=== PATIENT | female | born 1980 | race Caucasian/White ===

== ENCOUNTER 2022-02-22 15:52 | Inpatient (IN) | payer MEDICARE, MEDICAID ==
[~2022-02-22] VITALS: Ht 160 cm; Wt 50.0 kg
[2022-02-22] MEDS ORDERED: LOPERAMIDE HCL 2 MG CAPSULE PO PRN ×2 (21:45)
[2022-02-22] MEDS ORDERED: GuaiFENesin/D-METHORPHAN [SUGAR-FREE] 200-20MG/10 ML SYRUP UDCUP PO PRN (21:45)
[2022-02-22] MEDS ORDERED: GABAPENTIN 400 MG CAPSULE PO ONE (21:45)
[2022-02-22] MEDS ORDERED: ZOLPIDEM TARTRATE 10 MG TABLET PO PRN (21:45)
[2022-02-22] MEDS ORDERED: DIAZEPAM 10 MG TABLET PO PRN (21:45)
[2022-02-22] MEDS ORDERED: ACETAMINOPHEN 325 MG TABLET PO PRN (21:45)
[2022-02-22] MEDS ORDERED: MAG HYDROX/AL HYDROX/SIMETH ES 30 ML SUSPENSION UDCUP PO PRN (21:45)
[2022-02-22] MEDS ORDERED: CYANOCOBALAMIN 1,000 MCG/ML VIAL IM ONE (21:45)
[2022-02-22] MEDS ORDERED: HydrOXYzine PAMOATE 50 MG CAPSULE PO PRN (21:45)
[2022-02-22] MEDS ORDERED: DIVALPROEX SODIUM 500 MG ER TABLET PO ONE (21:45)
[2022-02-22] MEDS ORDERED: PROMETHAZINE HCL 25 MG TABLET PO PRN (21:45)
[2022-02-22] MEDS ORDERED: OLANZapine 5 MG RAPDIS TABLET PO PRN (21:45)
[2022-02-22 22:24] VITALS: BP 135/90
[2022-02-22 23:14] VITALS: BP 120/78
[2022-02-22] MEDS ORDERED: PNEUMOCOCCAL VACCINE POLYVALENT 0.5 ML VIAL [PPSV23] IM. ONE (23:45)
[2022-02-22] MEDS ORDERED: INFLUENZA VIRUS VACCINE QVS 2022-23 (6MO+)/PF 60 MCG/0.5 ML SYRINGE IM. ONE (23:45)
[2022-02-23] VITALS (9 sets, daily range): BP systolic 99–122; BP diastolic 66–80
[2022-02-23] MEDS ORDERED: DIAZEPAM 10 MG TABLET PO PRN (07:00)
[2022-02-23 07:07] LABS: BASOPHILS % (AUTO) 0.6 % (0.0-2.0); EOSINOPHILS % (AUTO) 2.3 % (1.0-6.0); HEMATOCRIT 33.5 % (36-46); HEMOGLOBIN 11.8 g/dL (12.0-16.0); LYMPHOCYTES # (AUTO) 2.2 K/uL (1.0-4.8); LYMPHOCYTES % (AUTO) 30.8 % (22.0-44.0); MEAN CORPUSCULAR HEMOGLOBIN 35.5 pg (26.0-34.0); MEAN CORPUSCULAR HGB CONC 35.1 G/dL (31.0-37.0); MEAN CORPUSCULAR VOLUME 101 fL (80-100); MONOCYTES # (AUTO) 0.7 K/uL (0.1-1.0); MONOCYTES % (AUTO) 9.6 % (2.0-9.0); NEUTROPHILS # (AUTO) 4.1 K/uL (1.8-7.7); NEUTROPHILS % (AUTO) 56.7 % (40.0-70.0); PLATELET COUNT (AUTO) 159 K/uL (150-450); RED BLOOD CELL COUNT(AUTO) 3.32 MIL/uL (4.00-5.20); RED CELL DISTRIBUTION WIDTH 13.5 % (11.5-14.5)
[2022-02-23 07:27] LABS: HEMOGLOBIN A1C 5.1 % (3.8-5.6)
[2022-02-23 07:29] LABS: ALANINE AMINOTRANSFERASE 21 U/L (12-78); ALBUMIN 3.7 g/dL (3.4-5.0); ALKALINE PHOSPHATASE 66 U/L (46-116); ANION GAP 8 mmol/L (8-16); ASPARTATE AMINOTRANSFERASE 19 U/L (15-37); BILIRUBIN,TOTAL 0.3 mg/dL (0.1-1.0); CARBON DIOXIDE 28 mmol/L (22-29); CHLORIDE 101 mmol/L (98-107); CHOL/HDL RATIO 2.6 (3.9-5.7); CHOLESTEROL 186 mg/dL (131-200); CREATININE 0.67 mg/dL (0.60-1.30); FREE T4 (FREE THYROXINE) 0.82 ng/dL (0.76-1.46); GLUCOSE,RANDOM 131 mg/dL (70-110); HDL CHOLESTEROL 71 mg/dL (40-60); LDL CHOL (CALC.) 95 mg/dL (0-130); POTASSIUM 3.2 mmol/L (3.5-5.1); SODIUM SERUM 137 mmol/L (136-145); THYROID STIMULATING HORMONE 5.99 uIU/mL (0.36-3.74); TOTAL PROTEIN, SERUM 7.1 g/dL (6.4-8.2); TRIGLYCERIDES 101 mg/dL (15-150); UREA NITROGEN, BLOOD 9 mg/dL (7-18)
[2022-02-23 07:30] LABS: GLOMERULAR FILTR. RATE CALC > 60 mL/min (>60)
[2022-02-23 08:13] LABS: AMPHET/METH SCREEN,URINE NEGATIVE (NEGATIVE); BARBITURATE SCREEN, URINE NEGATIVE (NEGATIVE); BENZODIAZEPINES SCREEN,URINE NEGATIVE (NEGATIVE); CANNABINOID SCREEN,URINE NEGATIVE (NEGATIVE); COCAINE SCREEN,URINE NEGATIVE (NEGATIVE); METHADONE SCREEN, URINE NEGATIVE (NEGATIVE); OPIATE SCREEN,URINE NEGATIVE (NEGATIVE)
[2022-02-23 08:16] LABS: PHENCYCLIDINE SCREEN,URINE NEGATIVE (NEGATIVE)
[2022-02-23] MEDS: GABAPENTIN 400 MG CAPSULE PO SCH ×4 (08:58→20:38)
[2022-02-23] MEDS: DIAZEPAM 10 MG TABLET PO SCH ×4 (08:58→20:37)
[2022-02-23] MEDS: MAGNESIUM HYDROXIDE SUSPENSION 30 ML UDCUP PO PRN (08:58)
[2022-02-23] MEDS: OLANZapine 5 MG RAPDIS TABLET PO SCH ×3 (08:59→16:27)
[2022-02-23] MEDS: FOLIC ACID 1 MG TABLET PO SCH (08:59)
[2022-02-23] MEDS: OMEGA-3/DHA/EPA/FISH OIL 1,000 MG CAPSULE PO SCH (08:59)
[2022-02-23] MEDS: MULTIVITAMINS WITH MINERALS, THERAPEUTIC TABLET PO SCH (08:59)
[2022-02-23] MEDS: NALTREXONE HCL 50 MG TABLET PO SCH (08:59)
[2022-02-23] MEDS: THIAMINE 100 MG TABLET PO SCH ×2 (08:59→16:27)
[2022-02-23] MEDS ORDERED: FLUoxetine HCL 10 MG CAPSULE PO SCH (09:00)
[2022-02-23] MEDS ORDERED: TUBERCULIN, PURIFIED PROTEIN DERIVATIVE 5 TU/0.1 ML SYRINGE ID ONE (09:00)
[2022-02-23] MEDS ORDERED: POTASSIUM CHLORIDE 20 MEQ ER TABLET PO ONE (10:15)
[2022-02-23] MEDS: MELATONIN 5 MG TABLET PO SCH (20:38)
[2022-02-23] MEDS ORDERED: DIVALPROEX SODIUM 500 MG ER TABLET PO SCH (21:00)
[2022-02-24 00:02] VITALS: BP 110/72
[2022-02-24 07:38] LABS: ANION GAP 3 mmol/L (8-16); CALCIUM, TOTAL 10.2 mg/dL (8.8-10.5); CARBON DIOXIDE 33 mmol/L (22-29); CHLORIDE 101 mmol/L (98-107); CREATININE 0.66 mg/dL (0.60-1.30); GLUCOSE,RANDOM 101 mg/dL (70-110); SODIUM SERUM 137 mmol/L (136-145); UREA NITROGEN, BLOOD 10 mg/dL (7-18)
[2022-02-24 07:39] LABS: GLOMERULAR FILTR. RATE CALC > 60 mL/min (>60)
[2022-02-24 08:06] VITALS: BP 97/57
[2022-02-24] MEDS: DISULFIRAM 250 MG TABLET PO SCH (08:10)
[2022-02-24] MEDS: FOLIC ACID 1 MG TABLET PO SCH (08:14)
[2022-02-24] MEDS: NALTREXONE HCL 50 MG TABLET PO SCH (08:14)
[2022-02-24] MEDS: GABAPENTIN 400 MG CAPSULE PO SCH ×4 (08:14→20:29)
[2022-02-24] MEDS: OMEGA-3/DHA/EPA/FISH OIL 1,000 MG CAPSULE PO SCH (08:14)
[2022-02-24] MEDS: DIAZEPAM 10 MG TABLET PO SCH ×4 (08:14→20:30)
[2022-02-24] MEDS: THIAMINE 100 MG TABLET PO SCH ×2 (08:14→16:32)
[2022-02-24] MEDS: MULTIVITAMINS WITH MINERALS, THERAPEUTIC TABLET PO SCH (08:14)
[2022-02-24] MEDS: ESCITALOPRAM OXALATE 10 MG TABLET PO SCH (08:15)
[2022-02-24 09:00] VITALS: BP 118/76
[2022-02-24] MEDS ORDERED: LIDOCAINE 5% TRANSDERMAL PATCH TD PRN (15:30)
[2022-02-24 16:47] VITALS: BP 112/69
[2022-02-24 20:00] VITALS: BP 110/75
[2022-02-24] MEDS: MELATONIN 5 MG TABLET PO SCH (20:30)
[2022-02-24] MEDS: DIVALPROEX SODIUM 500 MG ER TABLET PO SCH (20:30)
[2022-02-24] MEDS: TraZODone HCL 150 MG TABLET PO SCH (20:30)
[2022-02-25] MEDS ORDERED: DIAZEPAM 5 MG TABLET PO PRN (07:00)
[2022-02-25] MEDS: DISULFIRAM 250 MG TABLET PO SCH (08:12)
[2022-02-25] MEDS: DIAZEPAM 5 MG TABLET PO SCH ×4 (08:13→21:01)
[2022-02-25] MEDS: THIAMINE 100 MG TABLET PO SCH ×2 (08:13→17:34)
[2022-02-25] MEDS: ESCITALOPRAM OXALATE 10 MG TABLET PO SCH (08:13)
[2022-02-25] MEDS: MULTIVITAMINS WITH MINERALS, THERAPEUTIC TABLET PO SCH (08:13)
[2022-02-25] MEDS: FOLIC ACID 1 MG TABLET PO SCH (08:13)
[2022-02-25] MEDS: OMEGA-3/DHA/EPA/FISH OIL 1,000 MG CAPSULE PO SCH (08:13)
[2022-02-25] MEDS: NALTREXONE HCL 50 MG TABLET PO SCH (08:13)
[2022-02-25] MEDS: GABAPENTIN 400 MG CAPSULE PO SCH ×4 (08:13→21:01)
[2022-02-25 08:41] VITALS: BP 100/65
[2022-02-25] MEDS: MUPIROCIN CALCIUM 2% 22 GM OINTMENT NASAL SCH ×2 (09:00→16:59)
[2022-02-25 11:03] VITALS: BP 127/76
[2022-02-25] MEDS ORDERED: ESCI10 PO (15:52)
[2022-02-25] MEDS ORDERED: NALT50TA PO (15:52)
[2022-02-25] MEDS ORDERED: TRAZ-283 PO (15:52)
[2022-02-25] MEDS ORDERED: GABA-1201 PO (15:52)
[2022-02-25] MEDS ORDERED: OMEG-135 PO (15:52)
[2022-02-25] MEDS ORDERED: DIVA-80 PO (15:52)
[2022-02-25] MEDS ORDERED: MELA5TAB40 PO (15:52)
[2022-02-25] MEDS ORDERED: DISU250T8 PO (15:52)
[2022-02-25 16:05] VITALS: BP 107/65
[2022-02-25 16:30] VITALS: BP 107/60
[2022-02-25] MEDS: MELATONIN 5 MG TABLET PO SCH (21:01)
[2022-02-25] MEDS: DIVALPROEX SODIUM 500 MG ER TABLET PO SCH (21:01)
[2022-02-25] MEDS: TraZODone HCL 150 MG TABLET PO SCH (21:01)
[2022-02-25 21:17] VITALS: BP_SYST 102; BP_SYST 99; BP_DIAS 57; BP_DIAS 69
[2022-02-26 00:07] VITALS: BP 98/62
[2022-02-26] MEDS ORDERED: DIAZEPAM 5 MG TABLET PO PRN (07:00)
[2022-02-26 08:30] VITALS: BP 120/68
[2022-02-26] MEDS ORDERED: ESCITALOPRAM OXALATE 20 MG TABLET PO SCH (09:00)
[2022-02-26] MEDS: THIAMINE 100 MG TABLET PO SCH (09:06)
[2022-02-26] MEDS: GABAPENTIN 400 MG CAPSULE PO SCH ×2 (09:06→12:25)
[2022-02-26] MEDS: OMEGA-3/DHA/EPA/FISH OIL 1,000 MG CAPSULE PO SCH (09:06)
[2022-02-26] MEDS: FOLIC ACID 1 MG TABLET PO SCH (09:06)
[2022-02-26] MEDS: NALTREXONE HCL 50 MG TABLET PO SCH (09:07)
[2022-02-26] MEDS: MULTIVITAMINS WITH MINERALS, THERAPEUTIC TABLET PO SCH (09:07)
[2022-02-26] MEDS: DISULFIRAM 250 MG TABLET PO SCH (09:08)
[2022-02-26] MEDS: MUPIROCIN CALCIUM 2% 22 GM OINTMENT NASAL SCH (09:10)
[2022-02-26] MEDS ORDERED: MUPI1OIN5 TP (09:42)
[2022-02-26] MEDS: MAGNESIUM HYDROXIDE SUSPENSION 30 ML UDCUP PO PRN (11:14)
== END 2022-02-26 13:15 | disposition home or self-care (01) | DRG 885 ==
LOC: B2X 20:58
PROVIDERS: ADMIT Psychiatry & Neurology Psychiatry; ATTEND Psychiatry & Neurology Psychiatry
DX: F33.3 Major depressive disorder, recurrent, severe with psychotic symptoms (principal); R45.851 Suicidal ideations; Z20.822 Contact with and (suspected) exposure to COVID-19; F17.210 Nicotine dependence, cigarettes, uncomplicated; G40.909 Epilepsy, unspecified, not intractable, without status epilepticus; J44.9 Chronic obstructive pulmonary disease, unspecified; Z55.9 Problems related to education and literacy, unspecified; Z59.9 Problem related to housing and economic circumstances, unspecified; Z63.9 Problem related to primary support group, unspecified; Z65.3 Problems related to other legal circumstances; Z81.8 Family history of other mental and behavioral disorders; Z91.010 Allergy to peanuts
CPT/HCPCS: 80048; 80053; 80061; 80164; 80307; 83036; 84439; 84443; 84703; 85025; 86592; 87081; J3420; Q9967